=== PATIENT | female | born 1990 | race Two or more races ===

== ENCOUNTER → 2020-02-26 14:00 | Outpatient (BNVA) | payer MEDICAID, SELFPAY | PROVIDERS: Visit Provider Advanced Practice Midwife | DX: Z30.42 Encounter for surveillance of injectable contraceptive (principal) | CPT/HCPCS: 99212; J1050 ==

== ENCOUNTER → 2020-05-20 10:04 | Outpatient (BNVA) | payer MEDICAID, SELFPAY | PROVIDERS: Visit Provider Advanced Practice Midwife | DX: Z30.42 Encounter for surveillance of injectable contraceptive (principal) | CPT/HCPCS: 96372; 99211 ==

== ENCOUNTER → 2020-05-30 10:30 | Outpatient (BNVA) | payer MEDICAID, SELFPAY | PROVIDERS: Visit Provider Advanced Practice Midwife | DX: Z30.42 Encounter for surveillance of injectable contraceptive (principal) | CPT/HCPCS: 99212 ==

== ENCOUNTER → 2020-08-05 11:08 | Outpatient (BNVA) | payer MEDICAID, SELFPAY | PROVIDERS: Visit Provider Advanced Practice Midwife | DX: Z30.42 Encounter for surveillance of injectable contraceptive (principal) | CPT/HCPCS: 96372; 99211; J1050 ==

== ENCOUNTER → 2020-10-25 11:03 | Outpatient (BNVA) | payer MEDICAID, SELFPAY | PROVIDERS: Visit Provider Advanced Practice Midwife | DX: Z30.42 Encounter for surveillance of injectable contraceptive (principal) | CPT/HCPCS: 96372; 99211 ==

== ENCOUNTER 2020-11-15 09:20 | Outpatient (REF) | payer MEDICAID, SELFPAY | END 2020-11-15 09:21 | disposition home or self-care (01) | LOC: HO.LAB 09:20 | PROVIDERS: PCP Registered Nurse Community Health; Visit Provider Internal Medicine | DX: Z20.822 Contact with and (suspected) exposure to COVID-19 (principal) | CPT/HCPCS: C9803; U0003; U0005 ==

== ENCOUNTER → 2021-01-17 11:17 | Outpatient (BNVA) | payer MEDICAID, SELFPAY | PROVIDERS: PCP Registered Nurse Community Health; Visit Provider Advanced Practice Midwife | DX: Z30.42 Encounter for surveillance of injectable contraceptive (principal); J30.1 Allergic rhinitis due to pollen | CPT/HCPCS: 96372; 99211 ==

== ENCOUNTER 2021-04-04 09:58 | Outpatient (REF) | payer MEDICAID, SELFPAY ==
[2021-04-04 12:54] LABS: CT PCR NOT DETECTED (Not Detect.); NG PCR NOT DETECTED (Not Detect.)
[2021-04-05 16:00] LABS: BV Int Neg Control Negative (Negative); BV Int Pos Control Positive (Positive)
== END 2021-04-04 09:59 | disposition home or self-care (01) ==
LOC: HO.LAB 09:58
PROVIDERS: PCP Registered Nurse Community Health; Visit Provider Advanced Practice Midwife
DX: Z30.42 Encounter for surveillance of injectable contraceptive (principal); R10.2 Pelvic and perineal pain; Z20.2 Contact with and (suspected) exposure to infections with a predominantly sexual mode of transmission; Z72.0 Tobacco use
CPT/HCPCS: 36415; 86704; 86780; 86803; 87389; 87480; 87491; 87510; 87591; 87660; 88142; 96372

== ENCOUNTER 2021-04-04 10:53 | Outpatient (REF) | payer MEDICAID, SELFPAY ==
[2021-04-04 12:20] LABS: Syphilis Screen Nonreactive (Nonreactive)
[2021-04-04 12:25] LABS: Hepatitis B Core Antibody Nonreactive (Nonreactive); ~HepC Num1 0.08 S/CO (0.00-0.79); ~Hepatitis C Antibody Nonreactive (Nonreactive)
[2021-04-04 12:56] LABS: HIV AB/AG Nonreactive (Nonreactive); HIV Num 1 0.06 S/CO (0.00-0.99)
== END 2021-04-04 10:54 | disposition home or self-care (01) ==
LOC: HO.LAB 10:53
PROVIDERS: Visit Provider Advanced Practice Midwife
DX: Z11.4 Encounter for screening for human immunodeficiency virus [HIV] (principal); Z20.2 Contact with and (suspected) exposure to infections with a predominantly sexual mode of transmission
CPT/HCPCS: 36415; 86704; 86780; 86803; 87389

== ENCOUNTER 2021-04-29 11:34 | Outpatient (REF) | payer MEDICAID, SELFPAY ==
--- NOTE | ~2021-04-29 | US_ITS ---
EXAMINATION: US PELVIS CLINICAL INFORMATION: Pelvic and perineal pain COMPARISON: Pelvic ultrasound 05/15/2017 TECHNIQUE: Ultrasound of the pelvis is performed using both transabdominal and transvaginal transducers along with Doppler. Transvaginal imaging is performed due to inadequate visualization transabdominally. FINDINGS: Uterus: The uterus measures 5.9 x 4.1 x 5.2 cm. The uterus is anteverted and retroflexed. The double wall endometrial thickness is 0.4 mm. The uterus is smooth in contour and has normal myometrial echogenicity. No visible fibroid. Adnexa: Both ovaries are visualized. There is normal color flow to the adnexa. There is no pelvic ascites or fluid collection. Right ovary measures 2.9 x 1.8 x 2.0 cm. There are multiple small peripheral follicles within the right ovary. Left ovary measures 3.7 x 1.6 x 2.5 cm. There are multiple small peripheral follicles within the left ovary US/US pelvic and transvaginal IMPRESSION: Unremarkable pelvic ultrasound.
== END 2021-04-29 11:35 | disposition home or self-care (01) ==
LOC: HO.US 11:34
PROVIDERS: PCP Registered Nurse Community Health; Visit Provider Advanced Practice Midwife
DX: R10.2 Pelvic and perineal pain (principal)
CPT/HCPCS: 76830; 76856

== ENCOUNTER 2021-04-30 16:26 | Outpatient (REF) | payer MEDICAID, SELFPAY ==
--- NOTE | ~2021-04-30 | US_ITS ---
EXAMINATION: US SOFT TISSUE NECK CLINICAL INFORMATION: Fat pad dorsal cervical. COMPARISON: None. TECHNIQUE: Ultrasound of the neck soft tissues is performed with high- frequency christian-scale imaging and color Doppler. FINDINGS: Ultrasound imaging through the dorsal cervical area where patient complains of a bump is a bony prominence with no soft tissue mass or fluid collection. This may be related to a hypertrophied tip of the spinous process. US/US soft tiss head and/or neck IMPRESSION: There is a bony prominence in the area of lump with ultrasound. No focal mass or fluid collection seen.
== END 2021-04-30 16:27 | disposition home or self-care (01) ==
LOC: HO.US 16:26
PROVIDERS: PCP Registered Nurse Community Health; Visit Provider Registered Nurse Community Health
DX: E65 Localized adiposity (principal)
CPT/HCPCS: 76536

== ENCOUNTER 2021-05-08 11:59 | Outpatient (REF) | payer MEDICAID, SELFPAY ==
--- NOTE | ~2021-05-08 | XR_ITS ---
EXAMINATION: XR LUMBOSACRAL SPINE CLINICAL INFORMATION: Low back pain COMPARISON: None TECHNIQUE: Three views of the lumbosacral spine. FINDINGS: 5 nonrib-bearing lumbar vertebral bodies are visualized. Normal alignment of the lumbar spine. Lumbar vertebral body heights and disc spaces are well-maintained. Sacroiliac joints are symmetric. Mild to moderate colonic stool burden. XR/XR lumbar spine 2-3V IMPRESSION: Unremarkable radiographs of the lumbar spine.
== END 2021-05-08 12:00 | disposition home or self-care (01) ==
LOC: HO.XRAY 11:59
PROVIDERS: PCP Registered Nurse Community Health; Visit Provider Registered Nurse Community Health
DX: M54.50 Low back pain, unspecified (principal)
CPT/HCPCS: 72100

== ENCOUNTER → 2021-05-13 10:50 | Outpatient (BNVA) | payer MEDICAID, SELFPAY | PROVIDERS: PCP Registered Nurse Community Health; Visit Provider Advanced Practice Midwife ==

== ENCOUNTER 2021-05-21 07:50 | Outpatient (REF) | payer MEDICAID, SELFPAY ==
--- NOTE | ~2021-05-21 | XR_ITS ---
EXAMINATION: XR WRIST, RIGHT CLINICAL INFORMATION: Pain COMPARISON: None TECHNIQUE: PA, lateral, and oblique views of the right wrist. FINDINGS: The bones and soft tissues are normal. No fracture. Alignment is anatomic with normal joint spaces. No erosions or abnormal soft tissue calcifications. XR/XR wrist RT min 3V IMPRESSION: Normal right wrist.
== END 2021-05-21 07:51 | disposition home or self-care (01) ==
LOC: HO.HOSX 07:50
PROVIDERS: Visit Provider Physician Assistant
DX: G56.03 Carpal tunnel syndrome, bilateral upper limbs (principal)
CPT/HCPCS: 73110; 99202

== ENCOUNTER 2021-05-28 09:32 | Outpatient (REF) | payer MEDICAID, SELFPAY ==
[2021-05-30 10:37] LABS: H Pylori Breath Test Negative (Negative)
== END 2021-05-28 09:33 | disposition home or self-care (01) ==
LOC: HO.LNP 09:32
PROVIDERS: PCP Registered Nurse Community Health; Referring Provider Registered Nurse Community Health; Visit Provider Nurse Practitioner Family
DX: R10.13 Epigastric pain (principal); R13.12 Dysphagia, oropharyngeal phase; K21.9 Gastro-esophageal reflux disease without esophagitis; K59.01 Slow transit constipation; F17.210 Nicotine dependence, cigarettes, uncomplicated; Z11.0 Encounter for screening for intestinal infectious diseases
CPT/HCPCS: 36415; 83013

== ENCOUNTER → 2021-06-24 12:47 | Outpatient (BNVA) | payer MEDICAID, SELFPAY | PROVIDERS: PCP Registered Nurse Community Health; Visit Provider Physician Assistant | DX: G56.03 Carpal tunnel syndrome, bilateral upper limbs (principal) | CPT/HCPCS: 99212 ==

== ENCOUNTER → 2021-06-27 09:14 | Outpatient (BNVA) | payer MEDICAID, SELFPAY | PROVIDERS: PCP Registered Nurse Community Health; Visit Provider Advanced Practice Midwife | DX: Z30.42 Encounter for surveillance of injectable contraceptive (principal) | CPT/HCPCS: 96372; 99211 ==

== ENCOUNTER 2021-07-01 17:17 | Emergency (ER) | payer MEDICAID, SELFPAY ==
--- NOTE | 2021-07-01 17:20 | ECG_ITS ---
Test Reason : CHEST PAIN Blood Pressure : / mmHG Vent. Rate : 103 BPM Atrial Rate : 103 BPM P-R Int : 128 ms QRS Dur : 070 ms QT Int : 340 ms P-R-T Axes : 046 010 025 degrees QTc Int : 445 ms Sinus tachycardia Otherwise normal ECG No previous ECGs available Referred By: Generic ED Physician Electronically Signed By:ALEX LI MD
[2021-07-01 17:21] VITALS: BP 138/94; PULSE 106; RESP 18; TEMP 36.8; O2SAT 100; BMI 26.5
--- NOTE | 2021-07-01 23:23 | ED.CHESTPAIN ---
HPI - Chest Pain General Chief Complaint: Chest Pain Stated Complaint: vomitting, chest pain, sob Time Seen by Provider: 07/01/21 18:39 Source: patient Mode of arrival: ambulatory Limitations: no limitations History of Present Illness HPI narrative: Patient feeling very anxious with poor sleep nonspecific chest pain for last 1 week patient's boyfriend has non-Hodgkin's lymphoma and patient feels very stressed no fever no chills no urinary complaint Related Data Previous Rx's Medication Instructions Recorded medroxyprogesterone 150 mg/mL 150 mg IM [id number] #1 ml 04/04/21 intramuscular suspension (Depo-Provera) famotidine 40 mg tablet 40 mg PO BEDTIME #30 tab 05/28/21 pantoprazole 40 mg tablet,delayed 40 mg PO DAILY #30 tab 05/28/21 release sennosides 8.6 mg tablet (Natural 8.6 mg PO BEDTIME #30 tab 05/28/21 Senna Laxative) cefpodoxime 200 mg tablet 200 mg PO BID #10 tab 07/02/21 lorazepam 1 mg tablet (Ativan) 1 mg PO BID PRN #14 tab 07/02/21 Allergies Allergy/AdvReac Type Severity Reaction Status Date / Time pollen extracts [POLLEN] Allergy Unknown RUNNY Verified 07/01/21 17:21 NOSE/ITCHY EYES Review of Systems Review of Systems: Yes all other systems are reviewed and are negative PMF Past Medical History Medical History Acid reflux History of depression Hx of insomnia Surgical History Hx of rhinoplasty Family History Family History Mother History of breast cancer Hodgkin lymphoma Social History Social History Alcohol intake: never Cigarettes Per Day: 5 Advance Directives: No Advance Directives Information Provided: Yes Current occupational status: employed 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 Oriented X3. No acute distress. And she ENT: Pharynx normal. Oral Mucosa moist Neck: Normal inspection. Neck supple. CVS: Normal heart rate and rhythm. Pulses normal. Respiratory: No respiratory distress. Equal air entry bilateral, no wheezing/rales/rhonchi Abdomen: Soft and nontender. Bowel sounds are present, Skin: Skin warm and dry. Normal skin color. Normal skin turgor. Extremities: No lower extremity edema. No calf tenderness Neuro: Oriented X 3. MDM - Chest Pain MDM Narrative Medical decision making narrative: Patient increased anxiety noticed a slight UTI patient denies any symptoms will give her Ceftin and discharge Lab Data Attestation: I reviewed the patient's lab results. Result diagrams: 07/01/21 23:44 07/01/21 23:44 Labs: Lab Results 07/01/21 07/01/21 07/01/21 Range/Units 23:36 23:36 23:44 WBC 13.3 H (4.8-10.8) X10*3/uL RBC 4.85 (4.20-5.50) X10*6/uL Hgb 14.1 (12.0-16.0) g/dl Hct 42.9 (37.0-47.0) % MCV 88.5 (80.0-98.0) fL MCH 29.1 (27.0-33.0) pg MCHC 32.9 (31.0-35.0) g/dl RDW 12.8 (11.0-16.0) % Plt Count 334 (160-400) X10*3/uL MPV 9.1 L (9.4-12.3) fL Immature Gran % (Auto) 0.4 (0.0-0.4) % Neut % (Auto) 82.5 H (45-73) % Lymph % (Auto) 9.8 L (20-40) % [place] % (Auto) 5.2 (2-11) % Eos % (Auto) 1.9 (0-4) % Baso % (Auto) 0.2 (0-2) % Lymph # (Auto) 1.3 (1.2-4.9) X10*3/uL [place] # (Auto) 0.7 (0.1-1.2) X10*3/uL Eos # (Auto) 0.3 (0.0-0.4) X10*3/uL Baso # (Auto) 0.0 (0.0-0.2) X10*3/uL Abs Immat Gran (auto) 0.06 H (0.00-0.03) X10*3/uL Absolute Neuts (auto) 11.0 H (2.0-8.3) x10*3/uL Absolute Nucleated RBC 0.000 (0.0-0.012) X10*3/uL Nucleated RBC % (auto) 0.0 (0.0-0.2) /100WBC Sodium (135-145) mmol/L Potassium (3.3-5.1) mmol/L Chloride (96-108) mmol/L Carbon Dioxide (22-29) mmol/L Anion Gap (12-20) BUN (9-16) mg/dL Creatinine (0.5-1.4) mg/dL Estim Creat Clear Calc Estimated GFR Random Glucose (60-115) mg/dL Calcium (8.4-10.2) mg/dL Total Bilirubin (0.0-1.0) mg/dL Direct Bilirubin (0.0-0.5) mg/dL AST (5-31) U/L ALT (0-31) U/L Alkaline Phosphatase (39-117) U/L Troponin I High Sens (<3.5-17.0) ng/L Total Protein (6.5-8.0) g/dL Albumin (3.5-5.0) g/dL Urine Color YELLOW Urine Appearance HAZY Urine pH 6.0 (5.0-8.0) Ur Specific Maury >= 1.030 H (1.005-1.025) Urine Protein NEG (NEG-TRACE) MG/DL Urine Glucose (UA) NEG (NEG) MG/DL Urine Ketones NEG (NEG) MG/DL Urine Blood NEG (NEG) Urine Nitrite NEG (NEG) Ur Leukocyte Esterase 1+ H (NEG) Urine RBC 1-4 (0) /HPF Urine WBC 15-29 H (0-4) /HPF Ur Squamous Epith Cells 2+ /LPF Urine Bacteria 3+ /LPF Urine Mucus 2+ /LPF Urine Test NEGATIVE (NEGATIVE) 07/01/21 07/01/21 Range/Units 23:44 23:44 WBC (4.8-10.8) X10*3/uL RBC (4.20-5.50) X10*6/uL Hgb (12.0-16.0) g/dl Hct (37.0-47.0) % MCV (80.0-98.0) fL MCH (27.0-33.0) pg MCHC (31.0-35.0) g/dl RDW (11.0-16.0) % Plt Count (160-400) X10*3/uL MPV (9.4-12.3) fL Immature Gran % (Auto) (0.0-0.4) % Neut % (Auto) (45-73) % Lymph % (Auto) (20-40) % [place] % (Auto) (2-11) % Eos % (Auto) (0-4) % Baso % (Auto) (0-2) % Lymph # (Auto) (1.2-4.9) X10*3/uL [place] # (Auto) (0.1-1.2) X10*3/uL Eos # (Auto) (0.0-0.4) X10*3/uL Baso # (Auto) (0.0-0.2) X10*3/uL Abs Immat Gran (auto) (0.00-0.03) X10*3/uL Absolute Neuts (auto) (2.0-8.3) x10*3/uL Absolute Nucleated RBC (0.0-0.012) X10*3/uL Nucleated RBC % (auto) (0.0-0.2) /100WBC Sodium 139 (135-145) mmol/L Potassium 4.0 (3.3-5.1) mmol/L Chloride 107 (96-108) mmol/L Carbon Dioxide 23 (22-29) mmol/L Anion Gap 13 (12-20) BUN 15 (9-16) mg/dL Creatinine 0.75 (0.5-1.4) mg/dL Estim Creat Clear Calc 98.4 Estimated GFR > 60 Random Glucose 88 (60-115) mg/dL Calcium 9.2 (8.4-10.2) mg/dL Total Bilirubin 0.7 (0.0-1.0) mg/dL Direct Bilirubin 0.3 (0.0-0.5) mg/dL AST 12 (5-31) U/L ALT 15 (0-31) U/L Alkaline Phosphatase 66 (39-117) U/L Troponin I High Sens < 3.5 (<3.5-17.0) ng/L Total Protein 7.0 (6.5-8.0) g/dL Albumin 4.4 (3.5-5.0) g/dL Urine Color Urine Appearance Urine pH (5.0-8.0) Ur Specific Maury (1.005-1.025) Urine Protein (NEG-TRACE) MG/DL Urine Glucose (UA) (NEG) MG/DL Urine Ketones (NEG) MG/DL Urine Blood (NEG) Urine Nitrite (NEG) Ur Leukocyte Esterase (NEG) Urine RBC (0) /HPF Urine WBC (0-4) /HPF Ur Squamous Epith Cells /LPF Urine Bacteria /LPF Urine Mucus /LPF Urine Test (NEGATIVE) ECG Data ECG #1: Attestation: I personally reviewed and interpreted this ECG as follows: Interpretation: Sinus tachycardia heart rate 103 normal troponin normal axis no acute ST-T changes no acute skin Discharge Plan Discharge Clinical Impression: Anxiety, UTI (urinary tract infection) Patient Disposition: Home, Self-Care Instructions: Urinary Tract Infection in Women (ED), Anxiety (ED) Additional Instructions: Drink plenty of fluid Antibiotic as advised Medicine for anxiety as prescribed Follow-up with PCP if not better Prescriptions: New cefpodoxime 200 mg tablet 200 mg PO BID Qty: 10 0RF Rx Instructions: must administer with a meal/food lorazepam [Ativan] 1 mg tablet 1 mg PO BID PRN (Reason: anxiety) Qty: 14 0RF No Action medroxyprogesterone [Depo-Provera] 150 mg/mL suspension 150 mg IM [id number] Qty: 1 3RF pantoprazole 40 mg tablet,delayed release (DR/EC) 40 mg PO DAILY Qty: 30 2RF Rx Instructions: take one tablet half an hour before breakfast sennosides [Natural Senna Laxative] 8.6 mg tablet 8.6 mg PO BEDTIME Qty: 30 3RF famotidine 40 mg tablet 40 mg PO BEDTIME Qty: 30 3RF
[2021-07-01 23:28] VITALS: BP 119/76; PULSE 90; RESP 12; O2SAT 100
[2021-07-01 23:49] LABS: MANUAL DIFF FLAG NO
[2021-07-01 23:51] LABS: Appearance Urine HAZY; Color Urine YELLOW; Glucose Urine UA NEG (NEG); Leukocyte Esterase Urine 1+ (NEG); Nitrite Urine NEG (NEG); Specific Gravity - Urine >= 1.030 (1.005-1.025); UACC Culture Trigger YES; Urine Blood NEG (NEG); Urine Ketones NEG (NEG); Urine Protein NEG (NEG-TRACE)
[2021-07-01 23:52] LABS: Basophils Percent Auto 0.2 % (0-2); Eosinophils Absolute Auto 0.3 X10*3/uL (0.0-0.4); Eosinophils Percent Auto 1.9 % (0-4); Hematocrit 42.9 % (37.0-47.0); Hemoglobin 14.1 g/dl (12.0-16.0); Imm Gran Abs Auto 0.06 X10*3/uL (0.00-0.03); Imm Gran Pct Auto 0.4 % (0.0-0.4); Lymphocytes Absolute Auto 1.3 X10*3/uL (1.2-4.9); Lymphocytes Percent Auto 9.8 % (20-40); Mean Corpuscular HGB Conc 32.9 g/dl (31.0-35.0); Mean Corpuscular Hemoglobin 29.1 pg (27.0-33.0); Mean Corpuscular Volume 88.5 fL (80.0-98.0); Mean Platelet Volume 9.1 fL (9.4-12.3); Monocytes Absolute Auto 0.7 X10*3/uL (0.1-1.2); Monocytes Percent Auto 5.2 % (2-11); Neutrophils Percent Auto 82.5 % (45-73); Platelet Count 334 X10*3/uL (160-400); Red Blood Count 4.85 X10*6/uL (4.20-5.50); Red Cell Distribution Width 12.8 % (11.0-16.0); White Blood Count 13.3 X10*3/uL (4.8-10.8)
[2021-07-01 23:54] LABS: UPreg QC Valid YES; Urine Pregnancy NEGATIVE (NEGATIVE)
[2021-07-01 23:57] LABS: Bacteria Urine 3+ /LPF; Mucus Urine 2+ /LPF; Squamous Epithelial Cell Urine 2+ /LPF
[2021-07-02 00:15] LABS: Alanine Aminotransferase 15 U/L (0-31); Albumin Level 4.4 g/dL (3.5-5.0); Alkaline Phosphatase 66 U/L (39-117); Anion Gap 13 (12-20); Aspartate Amino Transferase 12 U/L (5-31); Bilirubin Direct 0.3 mg/dL (0.0-0.5); Bilirubin Total 0.7 mg/dL (0.0-1.0); Blood Urea Nitrogen 15 mg/dL (9-16); Calcium 9.2 mg/dL (8.4-10.2); Carbon Dioxide 23 mmol/L (22-29); Chloride 107 mmol/L (96-108); Creatinine Clr Calc Pharmacy 98.4; Estimated Glomerular Filt Rate > 60; Glucose Random 88 mg/dL (60-115); Sodium 139 mmol/L (135-145)
[2021-07-02 00:20] LABS: Troponin-I High Sensitivity < 3.5 ng/L (<3.5-17.0)
[2021-07-02] MEDS: LORazepam 1 MG TABLET PO (00:26)
== END 2021-07-02 00:54 | disposition home or self-care (01) ==
PROVIDERS: Emergency Medicine; Student in an Organized Health Care Education/Training Program; Emergency Provider Internal Medicine
DX: F41.9 Anxiety disorder, unspecified (principal); N39.0 Urinary tract infection, site not specified
CPT/HCPCS: 36415; 80048; 80076; 81001; 81025; 84484; 85025; 87086; 93005; 99283; 99284

== ENCOUNTER 2021-08-07 09:27 | Outpatient (REF) | payer MEDICAID, SELFPAY ==
--- NOTE | 2021-08-07 09:31 | EMG_ITS ---
Bilateral median and ulnar motor and sensory studies were performed. Bilateral radial sensory studies were performed and paraspinal muscles were tested with a needle. IMPRESSION: This is an unremarkable study with no evidence of neuropathy or radiculopathy. MD YING Christian/RYAN / [phone]
== END 2021-08-07 09:28 | disposition home or self-care (01) ==
LOC: HO.NEURO 09:27
PROVIDERS: PCP Registered Nurse Community Health; Visit Provider Physician Assistant
DX: G56.03 Carpal tunnel syndrome, bilateral upper limbs (principal)
CPT/HCPCS: 95886; 95911

== ENCOUNTER → 2021-08-12 10:30 | Outpatient (BNVA) | payer MEDICAID, SELFPAY | PROVIDERS: PCP Registered Nurse Community Health; Visit Provider Orthopaedic Surgery | DX: M79.641 Pain in right hand (principal) | CPT/HCPCS: 99212 ==

== ENCOUNTER → 2021-08-19 10:36 | Outpatient (BNVA) | payer MEDICAID, SELFPAY | PROVIDERS: PCP Registered Nurse Community Health; Referring Provider Registered Nurse Community Health; Visit Provider Nurse Practitioner Family | DX: K59.01 Slow transit constipation (principal); K21.9 Gastro-esophageal reflux disease without esophagitis | CPT/HCPCS: 99212 ==

== ENCOUNTER → 2021-09-15 11:04 | Outpatient (BNVA) | payer MEDICAID, SELFPAY | PROVIDERS: PCP Registered Nurse Community Health; Visit Provider Advanced Practice Midwife | DX: Z30.42 Encounter for surveillance of injectable contraceptive (principal) | CPT/HCPCS: 96372; 99211 ==

== ENCOUNTER → 2021-12-08 11:40 | Outpatient (BNVA) | payer MEDICAID, SELFPAY | PROVIDERS: PCP Registered Nurse Community Health; Visit Provider Advanced Practice Midwife | DX: Z30.42 Encounter for surveillance of injectable contraceptive (principal) | CPT/HCPCS: 96372; 99211 ==

== ENCOUNTER 2021-12-23 10:29 | Day surgery (SDC) | payer MEDICAID, SELFPAY ==
[2021-12-18 13:49] VITALS: BMI 26.5
--- NOTE | 2021-12-22 12:50 | HO.ANESPROP2 ---
Documented by User: Leigh Reid NP 12/22/21 12:51 HPI - Anesthesia Eval Consult details Narrative: 31yo F for Upper Endoscopy PMFSH Active Problems Active Problems: All Active Problems (Updated 12/18/21 @ 13:47 by Malou Jung RN) Encounter for Depo-Provera contraception (Acute) Depot contraception (Acute) Surveillance for Depo-Provera contraception (Acute) Encounter to discuss test results (Acute) Pelvic pain in female (Acute) Oily skin (Acute) Dyspareunia in female (Acute) Right hand pain (Acute) Past Medical History Medical History Acid reflux Bilateral carpal tunnel syndrome History of COVID-19 History of depression Hx of insomnia Family History Family History Mother History of breast cancer Hodgkin lymphoma Surgical History Surgical History Hx of rhinoplasty Social History Social History Alcohol intake: never Patient Tobacco Use Status: Current everyday Tobacco user Cigarettes Per Day: 5 Advance Directives: No Advance Directives Information Provided: Yes Current occupational status: employed 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[employer] Sexual orientation: Straight/Heterosexual Gender identity: Female Meds Allergies Allergy/AdvReac Type Severity Reaction Status Date / Time pollen extracts [POLLEN] Allergy Unknown RUNNY Verified 08/19/21 10:41 NOSE/ITCHY EYES Home Medications Medication Instructions Recorded Confirmed Last Taken Type fluoxetine 20 mg tablet 20 mg PO QAM 08/19/21 Unknown History hydroxyzine HCl 25 mg tablet 25 mg PO BEDTIME 08/19/21 Unknown History nicotine (polacrilex) 2 mg gum 2 mg PO Q4H PRN 08/19/21 Unknown History propranolol 10 mg tablet 10 - 20 mg PO BID PRN anxiety 08/19/21 Unknown History Exam Exam Date and Time: December 22, 2021 1250 Height,Weight and Vital Signs: Height 5 ft 2 in Weight 65.771 kg Narrative Narrative: EKG 06/2021 Vent. Rate : 103 BPM ? ? Atrial Rate : 103 BPM ?? P-R Int : 128 ms? QRS Dur : 070 ms ? ? QT Int : 340 ms ? ? ? P-R-T Axes : 046 010 025 degrees ?? QTc Int : 445 ms ? Sinus tachycardia Otherwise normal ECG No previous ECGs available Assessment and Plan Assessment Anesthesia Assessment: Chart Reviewed Documented by User: Pastor Hermosillo MD 12/23/21 11:33 [facility] Past Medical History Medical History Acid reflux Bilateral carpal tunnel syndrome History of COVID-19 History of depression Hx of insomnia Family History Family History Mother History of breast cancer Hodgkin lymphoma Family history of problems with anesthesia: No Surgical History Surgical History Hx of rhinoplasty History of Problems with Anesthesia: No Social History Social History Alcohol intake: never Patient Tobacco Use Status: Current everyday Tobacco user Cigarettes Per Day: 5 Advance Directives: No Advance Directives Information Provided: Yes Current occupational status: employed 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[employer] Sexual orientation: Straight/Heterosexual Gender identity: Female Meds Allergies Allergy/AdvReac Type Severity Reaction Status Date / Time pollen extracts [POLLEN] Allergy Unknown RUNNY Verified 08/19/21 10:41 NOSE/ITCHY EYES Home Medications Medication Instructions Recorded Confirmed Last Taken Type fluoxetine 20 mg tablet 20 mg PO QAM 08/19/21 Unknown History hydroxyzine HCl 25 mg tablet 25 mg PO BEDTIME 08/19/21 Unknown History nicotine (polacrilex) 2 mg gum 2 mg PO Q4H PRN 08/19/21 Unknown History propranolol 10 mg tablet 10 - 20 mg PO BID PRN anxiety 08/19/21 Unknown History Exam Airway Mallampati Class: II TM Dist: >3cm Neck ROM: Full Loose/Missing/Broken Teeth: No Heart: rrr Lungs: clear Assessment and Plan Final Anesthetic Review Family History of Problems with Anesthesia: No History of Problems with Anesthesia: No NPO: Yes ASA Class: II Final Preanesthetic Review: No Changes in Pt Med Stat, Meds/Allgs Chart Reviewed, Consent Obtained/Reviewed and Anes Risks/Benef Reviewed Patient Risk: Intermediate Procedure Risk: Low Anesthetic Plan Anesthetic Plan: MAC: Disposition: Standard PACU
[2021-12-23 10:42] VITALS: BP 117/77; PULSE 68; RESP 16; TEMP 37; O2SAT 98; BMI 25.6
[2021-12-23 10:53] LABS: UPreg QC Valid YES; Urine Pregnancy NEGATIVE (NEGATIVE)
[2021-12-23] MEDS: Lactated Ringers 1,000 ML 100 ML IVCONT (10:58)
--- NOTE | 2021-12-23 11:28 | MHC.SHP ---
Pre-Procedural Eval Section A Date of Service: 12/23/21 Section B Chief Complaint: reflux disease Relevant Family History (Specify if Yes): No Relevant Social History: Tobacco Use Present Medications: see Short Stay Collaborative assessment Medical History: Significant History (Acid reflux Bilateral carpal tunnel syndrome History of COVID-19 History of depression Hx of insomnia) History of Previous Operations: Relevant previous surgery/procedure and date(s) (rhinoplasty) Allergies: Allergies Allergy/AdvReac Type Severity Reaction Status Date / Time pollen extracts [POLLEN] Allergy Unknown RUNNY Verified 08/19/21 10:41 NOSE/ITCHY EYES Review of Systems Sugical H&P ROS: Negative: Constitution, Cardiovascular, Respiratory, Neurological, Psychiatric, Hem-Onc, Allergic/Immunologic, Gastrointestinal, Genitourinary, Musculoskeletal, Integumentary, Endocrine and Eyes/Ears/Nose/Throat Exam Surgical H&P Exam: Normal: HEENT, Normal: Heart, Normal: Lungs, Normal: Extremities, Normal: Abdomen, Normal: Skin and Normal: Neurological Plan Diagnosis/Plan: Unchanged I have reviewed the history and physical and performed a pertinent physical examination on my patient. No changes have occurred unless specified.
--- NOTE | 2021-12-23 11:29 | W.PM.OPN ---
Operative Note Operative Note Date of Service: 12/23/21 Narrative: Procedure Description: EGD Indication: GERd, epigastric pain Anesthesia: MAC FLEXIBLE TRANSORAL UPPER GASTROINTESTINAL ENDOSCOPY UPPER ENDOSCOPY Consent: Indications for the procedure and potential complications of bleeding, perforation, reaction to medications and missed diagnosis were discussed with the patient and informed consent was obtained. Instrument: Olympus GIF H 190 J mid size upper endoscope Monitoring: Vital signs and clinical assessment, continuous EKG monitoring, Pulse oximetry, Carbon Dioxide monitoring and blood pressure monitoring were done throughout the procedure. Procedure: The patient was placed in the left lateral decubitis position and pre-procedure medications were administered and a bite block was placed. The endoscope was inserted into the mouth and advanced under direct vision to the third part of duodenum. A careful inspection was made as the upper endoscope was withdrawn including a retroflexed examination of the proximal stomach; Findings and interventions are described below. Findings: Larynx:normal Esophagus: GE junction at 33 cm, diaphragm hiatus at 35 cm, consistent with 2 cm sliding hiatal hernia, erosive esophagitis noted , LA grade B, bx taken from GEJ, distal and proximal esophagus. Non obstructive schatzki ring also noted Stomach: Patchy gastric erythema. Biopsies were obtained. Grade 2 flap valve on retroflexed examination of the cardia. Duodenum: Normal bulb and descending duodenum, bx taken Intervention: Biopsies as noted above Impression/Findings: erosive esophagitis gastritis schatzki ring hiatal hernia PLAN: smoking cessation recommend high dose PPI and tincture of time, may take up to 3 months for full response, take 30 mins before meals on empty stomach
[2021-12-23 11:59] VITALS: BP 113/66; PULSE 62; RESP 18; TEMP 36.2; O2SAT 100
[2021-12-23 12:14] VITALS: BP 125/83; PULSE 64; RESP 18; TEMP 36.2; O2SAT 99
== END 2021-12-23 12:34 | disposition home or self-care (01) ==
PROVIDERS: Nurse Practitioner; PCP Registered Nurse Community Health; Visit Provider Internal Medicine Gastroenterology
PROC: 0DJ08ZZ Inspection of Upper Intestinal Tract, Via Natural or Artificial Opening Endoscopic (ICD-10-PCS; CPT 43235; principal; 2021-12-23 11:50)
DX: K21.9 Gastro-esophageal reflux disease without esophagitis (principal); K20.80 Other esophagitis without bleeding; K29.50 Unspecified chronic gastritis without bleeding; K22.2 Esophageal obstruction; K44.9 Diaphragmatic hernia without obstruction or gangrene; F17.210 Nicotine dependence, cigarettes, uncomplicated; Z86.16 Personal history of COVID-19
CPT/HCPCS: 43239; 81025; 88305; 88342

== ENCOUNTER → 2022-01-06 11:05 | Outpatient (BNVA) | payer MEDICAID, SELFPAY | PROVIDERS: PCP Registered Nurse Community Health; Visit Provider Nurse Practitioner Family | DX: K21.00 Gastro-esophageal reflux disease with esophagitis, without bleeding (principal); K59.01 Slow transit constipation | CPT/HCPCS: 99212 ==

== ENCOUNTER → 2022-03-03 10:31 | Outpatient (BNVA) | payer MEDICAID, SELFPAY | PROVIDERS: PCP Registered Nurse Community Health; Visit Provider Advanced Practice Midwife | DX: Z30.42 Encounter for surveillance of injectable contraceptive (principal) | CPT/HCPCS: 96372; 99211 ==

== ENCOUNTER 2022-04-06 09:28 | Outpatient (REF) | payer MEDICAID, SELFPAY | END 2022-04-06 09:29 | disposition home or self-care (01) | LOC: HO.LNP 09:28 | PROVIDERS: PCP Registered Nurse Community Health; Visit Provider Advanced Practice Midwife | DX: Z13.89 Encounter for screening for other disorder (principal) ==

== ENCOUNTER 2022-04-06 10:18 | Outpatient (REF) | payer MEDICAID, SELFPAY ==
[2022-04-06 12:00] LABS: HBc Num1 0.08 S/CO (0.00-0.79); HIV AB/AG Nonreactive (Nonreactive); HIV Num 1 0.07 S/CO (0.00-0.99); Hepatitis B Core Antibody Nonreactive (Nonreactive); Syphilis Screen Nonreactive (Nonreactive); ~HepC Num1 0.09 S/CO (0.00-0.79); ~Hepatitis C Antibody Nonreactive (Nonreactive)
[2022-04-06 15:15] LABS: CT PCR NOT DETECTED (Not Detect.); NG PCR NOT DETECTED (Not Detect.)
== END 2022-04-06 10:19 | disposition home or self-care (01) ==
LOC: HO.LAB 10:18
PROVIDERS: PCP Registered Nurse Community Health; Visit Provider Advanced Practice Midwife
DX: Z20.2 Contact with and (suspected) exposure to infections with a predominantly sexual mode of transmission (principal); Z30.42 Encounter for surveillance of injectable contraceptive
CPT/HCPCS: 0353U; 86704; 86780; 86803; 87389

== ENCOUNTER → 2022-05-20 12:49 | Outpatient (BNVA) | payer MEDICAID, SELFPAY | PROVIDERS: PCP Registered Nurse Community Health; Visit Provider Advanced Practice Midwife | DX: Z30.42 Encounter for surveillance of injectable contraceptive (principal) | CPT/HCPCS: 96372; 99211 ==

== ENCOUNTER 2022-09-13 06:14 | Emergency (ER) | payer MEDICAID, SELFPAY ==
--- NOTE | ~2022-09-13 | US_ITS ---
EXAMINATION: US PELVIS CLINICAL INFORMATION: Pelvic pain COMPARISON: Ultrasound pelvis 04/29/2021. TECHNIQUE: Ultrasound of the pelvis is performed using both transabdominal and transvaginal transducers along with Doppler. Transvaginal imaging is performed due to inadequate visualization transabdominally. FINDINGS: Uterus: The uterus is anteverted, retroflexed and measures 6.5 x 3.6 x 3.8 The double wall endometrial thickness is 0.5-0.6 cm. The uterus is smooth in contour and has normal myometrial echogenicity. No visible fibroid. There is minimal fluid in the cervical canal. Adnexa: Both ovaries are visualized. There is normal color flow to the adnexa. There is no ovarian torsion. There is no pelvic ascites or fluid collection. Right ovary measures 3.3 x 3.3 x 2.7 cm and volume 15.2 mL. There is a irregular appearing cysts measuring 2.2 x 1.7 x 1.8 cm likely a ruptured cyst there is adjacent fluid collection. Normal arterial and venous vascular flow seen to ovary. Previously right ovary measured 2.9 x 1.8 x 2.0 cm and volume 5.6 mL. Left ovary measures 2.6 x 1.6 x 1.9 cm and volume 4.0 mL. No focal lesion seen. Normal arterial and venous vascular Doppler flow seen. Previously left ovary measured 3.7 x 1.6 x 2.5 cm volume 7.8 mL. There is no free fluid in the pelvis. US/US pelvic ovarian doppler IMPRESSION: Likely ruptured cyst right ovary with focal adjacent fluid. Otherwise both ovaries are unremarkable. The uterus is unremarkable. There is minimal fluid within the cervical canal.
--- NOTE | ~2022-09-13 | US_ITS ---
EXAMINATION: US PELVIS CLINICAL INFORMATION: Pelvic pain COMPARISON: Ultrasound pelvis 04/29/2021. TECHNIQUE: Ultrasound of the pelvis is performed using both transabdominal and transvaginal transducers along with Doppler. Transvaginal imaging is performed due to inadequate visualization transabdominally. FINDINGS: Uterus: The uterus is anteverted, retroflexed and measures 6.5 x 3.6 x 3.8 The double wall endometrial thickness is 0.5-0.6 cm. The uterus is smooth in contour and has normal myometrial echogenicity. No visible fibroid. There is minimal fluid in the cervical canal. Adnexa: Both ovaries are visualized. There is normal color flow to the adnexa. There is no ovarian torsion. There is no pelvic ascites or fluid collection. Right ovary measures 3.3 x 3.3 x 2.7 cm and volume 15.2 mL. There is a irregular appearing cysts measuring 2.2 x 1.7 x 1.8 cm likely a ruptured cyst there is adjacent fluid collection. Normal arterial and venous vascular flow seen to ovary. Previously right ovary measured 2.9 x 1.8 x 2.0 cm and volume 5.6 mL. Left ovary measures 2.6 x 1.6 x 1.9 cm and volume 4.0 mL. No focal lesion seen. Normal arterial and venous vascular Doppler flow seen. Previously left ovary measured 3.7 x 1.6 x 2.5 cm volume 7.8 mL. There is no free fluid in the pelvis. US/US pelvic and transvaginal IMPRESSION: Likely ruptured cyst right ovary with focal adjacent fluid. Otherwise both ovaries are unremarkable. The uterus is unremarkable. There is minimal fluid within the cervical canal.
[2022-09-13 06:15] VITALS: BP 130/80; PULSE 96; RESP 18; TEMP 36.6; O2SAT 97; BMI 29.2
[2022-09-13 06:52] LABS: MANUAL DIFF FLAG NO
[2022-09-13 06:54] LABS: Basophils Absolute Auto 0.1 X10*3/uL (0.0-0.2); Basophils Percent Auto 0.8 % (0-2); Eosinophils Absolute Auto 0.3 X10*3/uL (0.0-0.4); Eosinophils Percent Auto 3.8 % (0-4); Hematocrit 43.6 % (37.0-47.0); Hemoglobin 14.5 g/dl (12.0-16.0); Imm Gran Abs Auto 0.04 X10*3/uL (0.00-0.03); Imm Gran Pct Auto 0.4 % (0.0-0.4); Lymphocytes Absolute Auto 2.3 X10*3/uL (1.2-4.9); Lymphocytes Percent Auto 25.9 % (20-40); Mean Corpuscular HGB Conc 33.3 g/dl (31.0-35.0); Mean Corpuscular Hemoglobin 29.1 pg (27.0-33.0); Mean Corpuscular Volume 87.4 fL (80.0-98.0); Mean Platelet Volume 8.8 fL (9.4-12.3); Monocytes Absolute Auto 0.8 X10*3/uL (0.1-1.2); Neutrophils Absolute Auto 5.5 x10*3/uL (2.0-8.3); Neutrophils Percent Auto 60.1 % (45-73); Platelet Count 348 X10*3/uL (160-400); Red Blood Count 4.99 X10*6/uL (4.20-5.50); Red Cell Distribution Width 12.6 % (11.0-16.0); White Blood Count 9.1 X10*3/uL (4.8-10.8)
[2022-09-13 07:08] LABS: Alanine Aminotransferase 57 U/L (0-31); Alkaline Phosphatase 74 U/L (39-117); Anion Gap 11 (12-20); Aspartate Amino Transferase 45 U/L (5-31); Bilirubin Direct 0.2 mg/dL (0.0-0.5); Bilirubin Total 0.4 mg/dL (0.0-1.0); Blood Urea Nitrogen 13 mg/dL (9-16); Calcium 9.3 mg/dL (8.4-10.2); Carbon Dioxide 24 mmol/L (22-29); Chloride 108 mmol/L (96-108); Creatinine Clr Calc Pharmacy 113.2; Estimated Glomerular Filt Rate > 60; Glucose Random 90 mg/dL (60-115); Lipase 15 U/L (8-78); Sodium 139 mmol/L (135-145); Total Protein 6.9 g/dL (6.5-8.0)
[2022-09-13 07:25] LABS: UPreg QC Valid YES; Urine Pregnancy NEGATIVE (NEGATIVE)
[2022-09-13 07:27] VITALS: BP 126/74; PULSE 94; RESP 18; O2SAT 98
--- NOTE | 2022-09-13 07:29 | PC.NURSE ---
Alert and oriented. Reports lower abdominal and lower back pain that started yesterday and got worse throughout the night into today. states that about 2 years ago she had a ruptured right ovary and this pain feels simmilar. States pain with BM`s and feels as if she is constipated. Denies pain with urination or blood in urines. Denies chest pain or sob. States has had a headache on and off since yesterday.
[2022-09-13 07:32] VITALS: TEMP 36.9
[2022-09-13 07:36] LABS: Appearance Urine Clear; Color Urine Yellow; Glucose Urine UA Negative (Negative); Leukocyte Esterase Urine Trace (Negative); Nitrite Urine Negative (Negative); Specific Gravity - Urine 1.025 (1.005-1.025); UMIC TRIGGER UACC YES; Urine Blood Negative (Negative); Urine Ketones Negative (Negative); Urine Protein Negative (Neg-Trace)
--- NOTE | 2022-09-13 07:38 | ED_ITS ---
HPI - Abdominal Pain General Chief Complaint: Abdominal Pain Stated Complaint: abd pain Time Seen by Provider: 09/13/22 07:37 Source: patient Mode of arrival: ambulatory Limitations: no limitations History of Present Illness HPI narrative: 32 y/o female with history of ovarian cysts presents to the ER for evaluation of pelvic pain since yesterday. She states the pain started gradually yesterday and got worse today. No relief with Tylenol last night. The pain is located in her lower abdomen/pelvic area, similar on both sides. She states the pain feels similar to when she ruptured an ovarian cyst a couple of years ago. She denies any vaginal bleeding or discharge. She states she was recently on the Depo jerald t, last got 1 month ago. She has not had a period in quite some time due to this. She denies any concern for STI. She denies chance of . She denies fever or chills, nausea, vomiting, diarrhea. She did have worsening pelvic pain when having a bowel movement yesterday. MD elicited complaint: abdominal pain and flank pain Pertinent past history: other (Ovarian cysts) Onset (ago): day(s) (1) Pain Consistency: constant Location: pelvis Severity: severe Quality: stabbing and aching Radiation: none Migration to: no migration Exacerbating factors: other (Bowel movement) Relieving factors: nothing Context: history of similar episodes Associated symptoms: denies other symptoms Related Data Home Medications Medication Instructions Recorded Confirmed fluoxetine 20 mg tablet 20 mg PO QAM 08/19/21 04/06/22 hydroxyzine HCl 25 mg tablet 25 mg PO BEDTIME 08/19/21 04/06/22 nicotine (polacrilex) 2 mg gum 2 mg PO Q4H PRN 08/19/21 04/06/22 propranolol 10 mg tablet 10 - 20 mg PO BID PRN anxiety 08/19/21 04/06/22 Previous Rx's Medication Instructions Recorded lorazepam 1 mg tablet (Ativan) 1 mg PO BID PRN anxiety #14 tabs 07/02/21 famotidine 40 mg tablet 40 mg PO BEDTIME #90 tabs 08/19/21 polyethylene glycol 3350 17 17 g PO DAILY #510 grams 08/19/21 gram/dose oral powder (Miralax) pantoprazole 40 mg tablet,delayed 40 mg PO BID #180 tabs 01/06/22 release sennosides 8.6 mg tablet (Natural 8.6 mg PO BEDTIME constipation #30 01/06/22 Senna Laxative) tabs medroxyprogesterone 150 mg/mL 150 mg IM [id number] #1 mL 04/06/22 intramuscular suspension (Depo-Provera) naproxen 500 mg tablet 500 mg PO BID PRN pain #20 tabs 09/13/22 Allergies Allergy/AdvReac Type Severity Reaction Status Date / Time pollen extracts [POLLEN] Allergy Unknown RUNNY Verified 04/06/22 09:36 NOSE/ITCHY EYES Review of Systems Review of Systems Yes all other systems are reviewed and are negative [facility] Past Medical History Medical History Acid reflux Bilateral carpal tunnel syndrome History of COVID-19 History of depression Hx of insomnia Surgical History History of esophagogastroduodenoscopy (EGD) Hx of rhinoplasty Family History Family History Mother History of breast cancer Hodgkin lymphoma Social History Social History Household Members Other:: mom Housing: Apartment Alcohol intake: never Patient Tobacco Use Status: Current everyday Tobacco user Cigarettes Per Day: 5 Years Smoked: 12 Smoked in Last 30 Days: Yes Use of substances other than those prescribed or required for medical reasons: No Advance Directives: No Advance Directives Information Provided: No Current occupational status: employed Current occupation: CARE PROGRAM DIRECTOR rt hand Sexual orientation: Straight/Heterosexual Gender identity: Female Physical Exam ED Vital Signs: Vital Signs - 24 hr 09/13/22 06:15 09/13/22 07:27 09/13/22 07:32 Temperature 97.8 F 98.4 F Pulse Rate 96 94 Respiratory Rate 18 18 Blood Pressure 130/80 126/74 Pulse Oximetry 97 98 Oxygen Delivery Method Room Air Room Air BMI result Body Mass Index 29.2 Appearance: Alert. Oriented X3. No acute distress. Head: normocephalic, atraumatic. Eyes: Pupils equal, round and reactive to light. ENT: Pharynx normal. No tonsillar swelling or exudate. Neck: Normal inspection. Neck supple. CVS: Normal heart rate and rhythm. Pulses normal. Respiratory: No respiratory distress. Breath sounds normal. Abdomen: Soft with mild tenderness of the suprapubic area only, no rebound or guarding, normal active +BS x4. pelvic deferred Skin: Skin warm and dry. Normal skin color. Normal skin turgor. No rashes. Extremities: No lower extremity edema. No joint swelling. Neuro/psych: Oriented X 3. No motor deficit. No sensory deficit. CN II-XII i ntact. Normal speech and cognition. Medical Decision Making Medical Decision Making [facility] Narrative: 32 yo female with history of ovarian cyst presents to the ER for evaluation of pelvic pain that started yesterday. It is worse today. It is not associated with vaginal bleeding or discharge. Doubt PID or STI. She is deferring pelvic exam. She feels like the pain is similar to her ovarian cysts in the past. Labs are reviewed and are unremarkable. She is not . Pelvic U/S today showed probable right sided ovarian cyst rupture with focal adjacent fluid. H/H normal, ovarian flow normal. No clinical suspicion for bleeding. She is sleeping comfortably after motrin. Discussed results and plan with the patient - d/c w. nsaids and VOIP NETWORK TECHNICIAN follow up. Differential Diagnosis Differential Diagnoses: The differential diagnosis associated with the presentation includes , UTI, STI, PID, ovarian cyst, ovarian torsion, fibroids Lab Data [facility] Lab Attestation statement: I reviewed the patient's lab results. Normal CBC, normal chemistry, normal renal function. Urinalysis negative for infection and 09/13/22 06:47 09/13/22 06:47 Labs: Lab Results 09/13/22 09/13/22 09/13/22 Range/Units 06:47 06:47 07:06 WBC 9.1 (4.8-10.8) X10*3/uL RBC 4.99 (4.20-5.50) X10*6/uL Hgb 14.5 (12.0-16.0) g/dl Hct 43.6 (37.0-47.0) % MCV 87.4 (80.0-98.0) fL MCH 29.1 (27.0-33.0) pg MCHC 33.3 (31.0-35.0) g/dl RDW 12.6 (11.0-16.0) % Plt Count 348 (160-400) X10*3/uL MPV 8.8 L (9.4-12.3) fL Immature Gran % (Auto) 0.4 (0.0-0.4) % Neut % (Auto) 60.1 (45-73) % Lymph % (Auto) 25.9 (20-40) % Curry % (Auto) 9.0 (2-11) % Eos % (Auto) 3.8 (0-4) % Baso % (Auto) 0.8 (0-2) % Lymph # (Auto) 2.3 (1.2-4.9) X10*3/uL Curry # (Auto) 0.8 (0.1-1.2) X10*3/uL Eos # (Auto) 0.3 (0.0-0.4) X10*3/uL Baso # (Auto) 0.1 (0.0-0.2) X10*3/uL Abs Immat Gran (auto) 0.04 H (0.00-0.03) X10*3/uL Absolute Neuts (auto) 5.5 (2.0-8.3) x10*3/uL Absolute Nucleated RBC 0.000 (0.0-0.012) X10*3/uL Nucleated RBC % (auto) 0.0 (0.0-0.2) /100WBC Sodium 139 (135-145) mmol/L Potassium 4.0 (3.3-5.1) mmol/L Chloride 108 (96-108) mmol/L Carbon Dioxide 24 (22-29) mmol/L Anion Gap 11 L (12-20) BUN 13 (9-16) mg/dL Creatinine 0.73 (0.5-1.4) mg/dL Estim Creat Clear Calc 113.2 Estimated GFR > 60 Random Glucose 90 (60-115) mg/dL Calcium 9.3 (8.4-10.2) mg/dL Total Bilirubin 0.4 (0.0-1.0) mg/dL Direct Bilirubin 0.2 (0.0-0.5) mg/dL AST 45 H (5-31) U/L ALT 57 H (0-31) U/L Alkaline Phosphatase 74 (39-117) U/L Total Protein 6.9 (6.5-8.0) g/dL Albumin 4.0 (3.5-5.0) g/dL Lipase 15 (8-78) U/L Urine Color Yellow Urine Appearance Clear Urine pH 7.0 (5.0-9.0) Ur Specific [place] 1.025 (1.005-1.025) Urine Protein Negative (Neg-Trace) mg/dL Urine Glucose (UA) Negative (Negative) mg/dL Urine Ketones Negative (Negative) mg/dL Urine Blood Negative (Negative) Urine Nitrite Negative (Negative) Ur Leukocyte Esterase Trace H (Negative) Urine RBC 0-2 (0-2) /HPF Urine WBC 0-5 (0-5) /HPF Ur Squamous Epith Cells 3-5 (0-2) /HPF Urine Bacteria Trace (None Seen) Hyaline Casts 0-2 (0-2) /LPF Urine Test (NEGATIVE) 09/13/22 Range/Units 07:07 WBC (4.8-10.8) X10*3/uL RBC (4.20-5.50) X10*6/uL Hgb (12.0-16.0) g/dl Hct (37.0-47.0) % MCV (80.0-98.0) fL MCH (27.0-33.0) pg MCHC (31.0-35.0) g/dl RDW (11.0-16.0) % Plt Count (160-400) X10*3/uL MPV (9.4-12.3) fL Immature Gran % (Auto) (0.0-0.4) % Neut % (Auto) (45-73) % Lymph % (Auto) (20-40) % Curry % (Auto) (2-11) % Eos % (Auto) (0-4) % Baso % (Auto) (0-2) % Lymph # (Auto) (1.2-4.9) X10*3/uL Curry # (Auto) (0.1-1.2) X10*3/uL Eos # (Auto) (0.0-0.4) X10*3/uL Baso # (Auto) (0.0-0.2) X10*3/uL Abs Immat Gran (auto) (0.00-0.03) X10*3/uL Absolute Neuts (auto) (2.0-8.3) x10*3/uL Absolute Nucleated RBC (0.0-0.012) X10*3/uL Nucleated RBC % (auto) (0.0-0.2) /100WBC Sodium (135-145) mmol/L Potassium (3.3-5.1) mmol/L Chloride (96-108) mmol/L Carbon Dioxide (22-29) mmol/L Anion Gap (12-20) BUN (9-16) mg/dL Creatinine (0.5-1.4) mg/dL Estim Creat Clear Calc Estimated GFR Random Glucose (60-115) mg/dL Calcium (8.4-10.2) mg/dL Total Bilirubin (0.0-1.0) mg/dL Direct Bilirubin (0.0-0.5) mg/dL AST (5-31) U/L ALT (0-31) U/L Alkaline Phosphatase (39-117) U/L Total Protein (6.5-8.0) g/dL Albumin (3.5-5.0) g/dL Lipase (8-78) U/L Urine Color Urine Appearance Urine pH (5.0-9.0) Ur Specific [place] (1.005-1.025) Urine Protein (Neg-Trace) mg/dL Urine Glucose (UA) (Negative) mg/dL Urine Ketones (Negative) mg/dL Urine Blood (Negative) Urine Nitrite (Negative) Ur Leukocyte Esterase (Negative) Urine RBC (0-2) /HPF Urine WBC (0-5) /HPF Ur Squamous Epith Cells (0-2) /HPF Urine Bacteria (None Seen) Hyaline Casts (0-2) /LPF Urine Test NEGATIVE (NEGATIVE) Independent Interpretation I performed an independent interpretation of an: Ultrasound Interpretation: Ultrasound with normal-appearing ovaries, agree with radiologist read Radiology Impression Discussion of test interpretation with radiology: I have reviewed the radiologist's reading. Radiologist Impression: EXAMINATION:? US PELVIS CLINICAL INFORMATION:? Pelvic pain COMPARISON: Ultrasound pelvis 04/29/2021. TECHNIQUE: Ultrasound of the pelvis is performed using both transabdominal and transvaginal transducers along with Doppler. Transvaginal imaging is performed due to inadequate visualization transabdominally. FINDINGS: Uterus: The uterus is anteverted, retroflexed and measures 6.5 x 3.6 x 3.8 The double wall endometrial thickness is 0.5-0.6 cm.? The uterus is smooth in contour and has normal myometrial echogenicity. ? No visible fibroid. There is minimal fluid in the cervical canal. Adnexa: Both ovaries are visualized. There is normal color flow to the adnexa. There is no ovarian torsion.? There is no pelvic ascites or fluid collection.? Right ovary measures 3.3 x 3.3 x 2.7 cm and volume 15.2 mL. There is a irregular appearing cysts measuring 2.2 x 1.7 x 1.8 cm likely a ruptured cyst there is adjacent fluid collection. Normal arterial and venous vascular flow seen to ovary. Previously right ovary measured 2.9 x 1.8 x 2.0 cm and volume 5.6 mL. Left ovary measures 2.6 x 1.6 x 1.9 cm and volume 4.0 mL. No focal lesion seen. Normal arterial and venous vascular Doppler flow seen. Previously left ovary measured 3.7 x 1.6 x 2.5 cm volume 7.8 mL. There is no free fluid in the pelvis. US/US pelvic and transvaginal IMPRESSION: Likely ruptured cyst right ovary with focal adjacent fluid. Otherwise both ovaries are unremarkable. ? The uterus is unremarkable. ? There is minimal fluid within the cervical canal. External Record Review External record reviewed: Outpatient record, Prior outpatient labs and Prior outpatient radiology Prescription Management I considered prescription management with: Pain Medication Medications Administered Discontinued Medications Generic Name Dose Route Start Last Admin Trade Name Freq PRN Reason Stop Dose Admin Ibuprofen 600 mg 09/13/22 07:43 09/13/22 07:59 Ibuprofen 600 Mg Tablet PO 09/13/22 07:44 600 mg ONCE ONE Administration Critical Care Time Critical Care Time Critical Care Time: No Discharge Plan Discharge Clinical Impression: Ovarian cyst rupture Patient Disposition: Home, Self-Care Instructions: Ovarian Cyst (ED) Additional Instructions: Your ultrasound showed a ruptured ovarian cyst which is the cause of your pain Treatment is anti-inflammatory pain medications. Take the prescribed medication as needed for pain Follow up with your extension worker. US/US pelvic ovarian doppler IMPRESSION: Likely ruptured cyst right ovary with focal adjacent fluid. Otherwise both ovaries are unremarkable. ? The uterus is unremarkable. ? There is minimal fluid within the cervical canal. Prescriptions: New naproxen 500 mg tablet 500 mg PO BID PRN (Reason: pain) Qty: 20 0RF No Action lorazepam [Ativan] 1 mg tablet 1 mg PO BID PRN (Reason: anxiety) Qty: 14 0RF pantoprazole 40 mg tablet,delayed release (DR/EC) 40 mg PO BID Qty: 180 2RF Rx Instructions: take one tablet half an hour before breakfast and 1 tablet before dinner sennosides [Natural Senna Laxative] 8.6 mg tablet 8.6 mg PO BEDTIME Qty: 30 3RF medroxyprogesterone [Depo-Provera] 150 mg/mL suspension 150 mg IM [id number] Qty: 1 4RF hydroxyzine HCl 25 mg tablet 25 mg PO BEDTIME fluoxetine 20 mg tablet 20 mg PO QAM propranolol 10 mg tablet 10 - 20 mg PO BID PRN (Reason: anxiety) nicotine (polacrilex) 2 mg gum 2 mg PO Q4H PRN polyethylene glycol 3350 [Miralax] 17 gram/dose powder 17 g PO DAILY Qty: 510 2RF famotidine 40 mg tablet 40 mg PO BEDTIME Qty: 90 3RF medroxyprogesterone [Depo-Provera] 150 mg/mL syringe 150 mg IM ONCE Qty: 1 0RF
[2022-09-13 07:43] LABS: Bacteria Urine Trace (None Seen); Hyaline Casts Urine 0-2 /LPF (0-2); RBC Urine 0-2 /HPF (0-2); WBC Urine 0-5 /HPF (0-5)
[2022-09-13] MEDS: Ibuprofen 600 MG TABLET PO (07:59)
== END 2022-09-13 10:46 | disposition home or self-care (01) ==
PROVIDERS: Emergency Provider Student in an Organized Health Care Education/Training Program
DX: N83.201 Unspecified ovarian cyst, right side (principal); R10.2 Pelvic and perineal pain; Z79.899 Other long term (current) drug therapy; F17.210 Nicotine dependence, cigarettes, uncomplicated
CPT/HCPCS: 36415; 76830; 76856; 80048; 80076; 81001; 81025; 83690; 85025; 93975; 99284